=== PATIENT | female | born 1975 | race Caucasian/White ===

== ENCOUNTER → 2024-10-22 | Outpatient (CLI) | payer OTHER, SELFPAY ==
[2024-10-22 09:11] LABS: Collection Type, Urine Clean Catch
[2024-10-22 09:44] LABS: Basophils # (Auto) 0.1 Thou/mm3 (0.0-0.2); Basophils % (Auto) 1 % (0-2.5); Eosinophils # (Auto) 0.1 Thou/mm3 (0.0-0.5); Eosinophils % (Auto) 1 % (0-10); Hematocrit 40.7 % (36.0-46.0); Hemoglobin 13.8 g/dL (12.0-16.0); Immature Granulocytes % (Auto) 0 % (0-0); Immature Granulocytes Auto 0.01 Thou/mm3 (0.00-0.00); Lymphocytes # (Auto) 2.2 Thou/mm3 (1.0-4.8); Lymphocytes % (Auto) 37 % (10-50); Mean Corpuscular HGB Conc 33.9 g/dl (31.0-37.0); Mean Corpuscular Hemoglobin 29.5 pg (25.0-35.0); Mean Corpuscular Volume 87 fL (80-100); Monocytes # (Auto) 0.4 Thou/mm3 (0.0-0.8); Monocytes % (Auto) 7 % (0-12); Neutrophils # (Auto) 3.1 Thou/mm3 (1.8-7.7); Neutrophils % (Auto) 53 % (37-80); Nucleated Red Blood Cell % 0 /100 WBC (0); Platelet Count 297 Thou/mm3 (140-440); RDW Standard Deviation 41.2 fL (36.4-46.3); Red Blood Count 4.68 Miln/mm3 (4.00-5.20); White Blood Count 5.8 Thou/mm3 (3.6-11.0)
[2024-10-22 09:55] LABS: Bilirubin,Urine Negative (Negative); Blood,Urine Negative (Negative); Clarity,Urine Clear (Clear/Hazy); Color,Urine Yellow (Lt Yel-Yel); Culture Indicated,Urine Not Indicated; Glucose, Urine Negative (Negative); Ketones,Urine Negative (Negative); Leukocyte Esterase,Urine Negative (Negative); Nitrite,Urine Negative (Negative); Protein,Urine Trace (Neg - Trace); RBC,Urine 2 /hpf (0-3); Squamous Epithelial Cell,Urine 10 /hpf (0-5); Transitional Epi Cells,Urine < 1 /hpf (0-5); WBC,Urine 3 /hpf (0-5)
[2024-10-22 10:01] LABS: Vitamin D 25 Hydroxy Total 29.3 ng/mL (7.3-40.2)
[2024-10-22 10:13] LABS: Alanine Aminotransferase 10 U/L (10-49); Albumin, Serum 4.5 gm/dL (3.5-5.0); Alkaline Phosphatase 77 U/L (46-116); Anion Gap 5 (7-16); Aspartate Amino Transferase 14 U/L (0-34); BUN/Creatinine Ratio 17 Ratio (12-20); Bilirubin,Total 0.6 mg/dL (0.3-1.2); Blood Urea Nitrogen 12 mg/dL (9-23); Calcium 9.6 mg/dL (8.3-10.6); Calcium (Corrected) 9.6 mg/dL (8.5-10.1); Carbon Dioxide 25.8 mMol/L (20.0-31.0); Cardiac Risk Estimate 3.8 RATIO (3.7-5.6); Chloride 105 mMol/L (98-107); Cholesterol 135 mg/dL (132-200); Creatinine (Component) 0.7 mg/dL (0.6-1.3); Globulin 2.3 gm/dL (2.3-3.5); Glucose 80 mg/dL (74-106); HDL Cholesterol 36 mg/dL (40-60); LDL Cholesterol,Calculated 79 mg/dL (0-130); Osmolality,Calculated 270 (275-295); Potassium 3.8 mMol/L (3.4-5.1); Sodium 136 mMol/L (136-145); Thyroid Stimulating Hormone 0.98 uIU/mL (0.55-4.78); Total Protein 6.8 gm/dL (5.7-8.2); Triglycerides 99 mg/dL (30-150); eGFR > 60 See Note
[2024-10-22 10:16] LABS: Glucose Estimated Average 91 mg/dL (80-131); Hemoglobin A1C 4.8 % Hgb (4.8-6.0)
== END | disposition home or self-care (01) ==
LOC: COPL 08:39
PROVIDERS: PCP Family Medicine; Referring Provider Registered Nurse; Visit Provider Registered Nurse
DX: R79.89 Other specified abnormal findings of blood chemistry (principal)
CPT/HCPCS: 36415; 80053; 80061; 81001; 82306; 83036; 84443; 85025

== ENCOUNTER → 2024-10-23 | Outpatient (CLI) | payer OTHER, SELFPAY ==
--- NOTE | 2024-10-23 11:30 | XR_ITS ---
Examination: Screening digital mammography, bilateral Computer aided detection 3-D breast Tomosynthesis, bilateral Date and time of exam: October 23, 2024 1134 hours Compared to mammograms dating to December 14, 2016 Indication: Screening Technique: Nonmagnified MLO, CC views of the breasts to been obtained, reconstructed from 3-D Tomosynthesis images. R2 computer aided detection program utilized for evaluation of suspicious masses and/or abnormal calcifications. 3-D Tomosynthesis images obtained. Findings: Scattered areas of fibroglandular density Interval asymmetric focal asymmetry retroareolar region right breast 30 mm Benign calcifications Impression: BI-RADS Category 0: Incomplete: Need additional imaging evaluation 30 mm focal asymmetry retroareolar region right breast, recommend follow-up spot Diffuse retroareolar region right breast right breast sonography to complete the workup
== END | disposition home or self-care (01) ==
LOC: CDIM 11:14
PROVIDERS: PCP Registered Nurse; Referring Provider Registered Nurse; Visit Provider Registered Nurse
DX: Z12.31 Encounter for screening mammogram for malignant neoplasm of breast (principal); R92.8 Other abnormal and inconclusive findings on diagnostic imaging of breast; N64.89 Other specified disorders of breast
CPT/HCPCS: 77063; 77067

== ENCOUNTER 2024-10-24 12:37 | Emergency (ER) | payer OTHER, SELFPAY ==
--- NOTE | 2024-10-24 12:42 | XR_ITS ---
Examination: Foot, right, 3 views Technique: AP, oblique, lateral views foot, 3 views Date and time of exam: October 24, 2024 1254 hours INDICATIONS: Right foot and heel pain beginning today FINDINGS: No fracture or dislocation No cortical bone destruction No foreign body IMPRESSION: No fracture or dislocation
--- NOTE | 2024-10-24 12:46 | PD.EDANKLE ---
Lower Extremity Injury RME/HPI General Chief Complaint: Ankle/Foot Injury Stated Complaint: Right foot/heal Time Seen by Provider: 10/24/24 12:40 Arrival date/time: 10/24/24 12:37 48-year-old female presents emergency department complains of right foot pain patient reports sudden onset of foot pain last night patient reports no recent injury Limitations: no limitations Related Data Home Medications ?Medication ?Instructions ?Recorded ?Confirmed minocycline 100 mg tablet 100 mg PO QDAY 02/03/22 02/05/22 [id number] 0.4 mg-calcium 162 1 tab PO QDAY 02/03/22 02/05/22 mg-iron 18 ef-obduqol-rcsbry tablet acetaminophen 325 mg capsule 325 mg PO QID PRN 03/10/22 (Tylenol) Previous Rx's ?Medication ?Instructions ?Recorded ibuprofen 800 mg tablet 800 mg PO Q8H PRN pain #30 tabs 05/22/20 ibuprofen 800 mg tablet 800 mg PO Q8H #30 tabs 02/05/22 benzocaine 15 mg-menthol 2.6 mg 1 conrad PO Q2H PRN sore throat #16 ea 03/10/22 lozenges (Cepacol Sore Throat (benzocaine-menthol)) fluticasone propionate 50 1 spray intranasal BID PRN nasal 03/10/22 mcg/actuation nasal congestion #16 grams spray,suspension (Flonase Allergy Relief) ondansetron 4 mg disintegrating 4 mg PO Q12H PRN nausea and 07/30/24 tablet vomiting #20 tabs prochlorperazine 25 mg rectal 25 mg [place] Q12H nausea and vomiting 07/30/24 suppository (Compazine) #10 ea Allergies Allergy/AdvReac Type Severity Reaction Status Date / Time levofloxacin Allergy Severe SEIZURE Verified 07/30/24 07:07 Review of Systems Review of Systems Systems Reviewed: All systems reviewed, normal except as documented Constitutional Constitutional: Reports system reviewed and no additional complaints, except as documented, Denies fever(s) and Denies headache(s) Eyes Eyes: Reports system reviewed and no additional complaints, except as documented and Denies blurry vision ENT Ears, Nose, Mouth, and Throat: Reports system reviewed and no additional complaints, except as documented, Denies headache(s), Denies nasal congestion and Denies nasal discharge Cardiovascular Cardiovascular: Reports system reviewed and no additional complaints, except as documented, Denies chest pain and Denies dyspnea Respiratory Respiratory: Reports system reviewed and no additional complaints, except as documented, Denies chest congestion, Denies cough and Denies dyspnea Gastrointestinal Gastrointestinal: Reports system reviewed and no additional complaints, except as documented and Denies abdominal pain Musculoskeletal Musculoskeletal: Reports system reviewed and no additional complaints, except as documented, Reports abnormal gait, Reports arthralgias, Denies deformity, Denies joint swelling, Denies numbness, Denies stiffness and Denies tingling Integumentary/Breasts Skin/Breast: Reports system reviewed and no additional complaints, except as documented and Denies rash Neurologic Neurologic: Reports system reviewed and no additional complaints, except as documented, Reports as per HPI, Reports abnormal gait, Denies headache(s), Denies numbness and Denies tingling Past Medical History Past Medical History NEUROLOGIC: Negative Neurological Disorders CARDIAC: Negative Cardiac Disorders ED Exam General Limitations: Present no limitations General appearance: Present alert and in no apparent distress Head Head exam: Present atraumatic Eye Eye exam: Present normal appearance, PERRL and EOMI ENT ENT exam: Present normal exam, normal oropharynx and mucous membranes moist Neck Neck exam: Present normal inspection, full ROM and trachea midline Chest Chest inspection: Present normal inspection and symmetric chest wall rise Respiratory Respiratory exam: Present normal lung sounds bilaterally Cardiovascular Cardiovascular exam: Present regular rate, normal rhythm and normal heart sounds Abdominal Exam Abdominal exam: Present soft and normal bowel sounds Extremities Exam Extremities exam: Present full ROM, tenderness (Foot pain) and normal capillary refill; Absent pedal edema, joint swelling or calf tenderness Back Exam Back exam: Present normal inspection and full ROM Neurological Exam Neurological exam: Present alert, oriented X3 and CN II-XII intact Psychiatric Psychiatric exam: Present normal affect and normal mood Skin Skin exam: Present warm, dry, intact and normal color Course Quality Measures none Orders Category Date Time Status XR foot comp RT min 3V Stat Exams 10/24/24 12:42 Completed Vital Signs Vital signs: Vital Signs Temperature 98.4 F 10/24/24 13:10 Pulse Rate 89 10/24/24 13:10 Respiratory Rate 16 10/24/24 13:10 Blood Pressure 106/69 10/24/24 13:10 Pulse Oximetry (%) 97 10/24/24 13:10 Oxygen Delivery Method Room Air 10/24/24 13:10 O2 saturation 98% room air within normal limits Extremity Injury, Lower MDM Narrative MDM Narrative:: 48-year-old female presents emergency department complains of right foot pain patient reports sudden onset of foot pain last night patient reports no recent injury On exam patient has tenderness and pain to the right foot X-ray of right foot obtained no acute fracture dislocation noted Patient discharged home in no distress to follow-up with primary care doctor in the next 24 to 48 hours and for any worsening symptoms to return to the ER immediately Patient data External records reviewed:: [facility] previous records Clinical information provided by:: patient Social determinants that could affect healthcare access:: none Patient has the following chronic illnesses:: See history How is presenting disease/condition affected by chronic disease/condition?: uneffected by Evaluation data The following diagnostics were reviewed and interpreted by me:: radiology exam(s) Lab and/or radiology exams considered but not ordered:: Radiology obtain Interpretation Summary: Reviewed by me Medications / Prescriptions Medications or Prescriptions considered but not ordered:: Given Medication administrations:: Given Consultations Consultation(s) initiated? (list below): No Diagnosis Extremity Injury, Lower Differential Diagnosis: ankle sprain and strain, ankle fracture and other (Foot sprain, foot fracture, heel spur) Most likely diagnosis given after review of the tests above:: Foot pain Admission Indicated Admission indicated?: not indicated Admission Request Was there a request for admission?: No Disposition Plan Disposition Plan: Discharge Discharge Attestation Discharge Attestation: The patient and all family members were given an opportunity to ask questions and understood the discharge instructions. Discharge instructions specifically effects, indications for sooner follow up or return to the emergency department, and the expected course of current diagnosis. Patient condition: Stable Discharge Plan Plan Patient Disposition: HOME (Self Care) Disposition Comment: Stable Prescriptions/Referrals Prescriptions/Med Rec: No Action ibuprofen 800 mg tablet 800 mg PO Q8H PRN (Reason: pain) Qty: 30 0RF acetaminophen [Tylenol] 325 mg capsule 325 mg PO QID PRN fluticasone propionate [Flonase Allergy Relief] 50 mcg/actuation spray,suspension 1 spray intranasal BID PRN (Reason: nasal congestion) Qty: 16 0RF Rx Instructions: administer into each nostril Cepacol Sore Throat (jennifer-men) 15-2.6 mg lozenge 1 conrad PO Q2H PRN (Reason: sore throat) Qty: 16 0RF minocycline 100 mg Tablet 100 mg PO QDAY [id number]-puetmcc-lutein 0.4-162-18 mg Tablet 1 tab PO QDAY ibuprofen 800 mg tablet 800 mg PO Q8H Qty: 30 0RF prochlorperazine [Compazine] 25 mg suppository 25 mg [place] Q12H Qty: 10 0RF ondansetron 4 mg tablet,disintegrating 4 mg PO Q12H PRN (Reason: nausea and vomiting) Qty: 20 0RF Referrals: Ying Chino MD [Primary Care Provider] - In 1 week Problem List Clinical Impression: Foot pain, right Patient/Caregiver Discharge Instructions Education Materials: Parts of a Foot Additional Instructions: Please follow up with your primary care doctor in the next 24-48hrs for any worsening symptoms return here immediately Print Language: Nigerien Stand Alone Forms: Patricia Award Info., Patient Portal Info Letter PA/COMMUNITY [employer] REP Supervising Physician PA/CRUZITO Supervising Physician: Dr Mata
[2024-10-24 13:10] VITALS: BP 106/69; PULSE 89; RESP 16; TEMP 36.9; O2SAT 97; BMI 28.3
== END 2024-10-24 13:50 | disposition home or self-care (01) ==
PROVIDERS: Emergency Provider Emergency Medicine; PCP Family Medicine
DX: M79.671 Pain in right foot (principal)
CPT/HCPCS: 73630; 99283

== ENCOUNTER → 2024-11-02 | Outpatient (CLI) | payer OTHER, SELFPAY ==
--- NOTE | 2024-11-02 14:44 | XR_ITS ---
EXAMINATION: Ankle, right 3 views . Technique: Ankle AP, oblique, lateral 3 views Date and time of exam: November 02, 2024 1447 hours INDICATIONS: Right ankle pain joint pain one month FINDINGS: No fracture or dislocation No cortical bone destruction No foreign body IMPRESSION: No fracture or dislocation
== END | disposition home or self-care (01) ==
PROVIDERS: PCP Family Medicine; Referring Provider Internal Medicine; Visit Provider Internal Medicine
DX: M25.571 Pain in right ankle and joints of right foot (principal)
CPT/HCPCS: 73610

== ENCOUNTER 2024-11-27 13:30 | Outpatient (RCR) | payer OTHER, SELFPAY ==
--- NOTE | 2024-11-20 14:03 | PTNOTE_ITS ---
PT OP Initial Eval Patient Information Outpatient Physical Therapy Treatment Date: 11/20/24 Visit Reasons: right ankle pain Medical Diagnosis: M25.571 Treatment Dx #1: Right Ankle Pain Treatment Dx #2: Right Ankle Instability Start of Care: 11/20/24 Date of Onset: 5 weeks ago Smoking Status Smoking Status: Never smoker Initial Assessment Subjective: Pt is a 49 y/o female reports of right lateral ankle pain insidious onset. Pt denies of injury or trauma to the ankle. Pt's xray negative no MRI has been done thus far. Pt has limitation with prolonged walking, balance, work duties, standing, and performing recreational activities. Objective: Right Ankle AROM: all motions are WFL with pain towards end range ankle in version and plantar flexion Right Ankle MMTs: grossly 4-/5 except ankle invertors 3+/5 SLS: increase ankle instability with excessive foot supination Right Hip MMTs: grossly 3+/5 Palpation: TTP peroneals tendons Assessment: Pt demonstrate ankle pain and instability leading to difficulty with ADLs. Pt will benefit from physical therapy to increase ROM, strength, and work on ankle stability. Short Term and [employer] Work[employer] App[employer]ice Goals 1) Decrease ankle pain to 2/10 in 6 wks to be able to stand more than 30 mins 2) Increase ankle MMTs grossly to 4/5 in 6 wks to be able to walk more than 30 mins 3) Increase hip MMTs grossly to 4-/5 in 6 wks to be able to perform recreational activities 4) Increase SLS to 20 sec in 6 wks to be able to perform self care activities 5) Indep with HEP Treatment Plan 1) Manual Therapy 2) Therapeutic Activities 3) Therapeutic Exercises 4) Modalities (ice, heat) 5) Balance Training Frequency and Duration: 2 x wk for 6 wks Certification Dates: 11/20/24 to 02/18/25 Procedure Charges OP PT Eval Mod Complex 30 minutes: Yes
--- NOTE | 2024-11-27 15:31 | PT.ODAYNRPT ---
PT Outpatient Daily Note OP Daily Note Outpatient Physical Therapy Treatment Date: 11/27/24 Visit Reasons: right ankle pain Subjective: Pt seen rand butting machine operator last tuesday. specialist thinks it's either torn ligaments or tarsal tunnel. specialist order a foot MRI and is pending auth. Objective: Please see flow chart for list of ther ex performed Assessment: ankle pain with all exercises; cue to pace to decrease foot pain Plan: Continue with PT Length of Time (minutes) of Treatment: 30 Minutes Procedure Charges Therapeutic Exercise 30 minutes: Yes
== END 2024-11-27 23:59 | disposition home or self-care (01) ==
LOC: CPTX 13:30
PROVIDERS: PCP Internal Medicine; Referring Provider Internal Medicine; Visit Provider Internal Medicine
DX: M25.571 Pain in right ankle and joints of right foot (principal); M25.371 Other instability, right ankle
CPT/HCPCS: 97110; 97162